=== PATIENT | male | born 1950 | race Caucasian/White ===

== ENCOUNTER 2019-05-01 13:22 | Outpatient (CLI) | payer MEDICARE ==
[2019-05-01] MEDS ORDERED: ACET-1600 PO (13:53)
[2019-05-01 14:31] LABS: MICROSCOPIC NOT IND
[2019-05-01 14:34] LABS: BASOPHILS # (AUTO) 0.09 x10^3/uL (0-0.1); BASOPHILS % (AUTO) 1 % (0-1); EOSINOPHILS # (AUTO) 0.07 x10^3/uL (0-0.4); EOSINOPHILS % (AUTO) 1 % (1-7); LYMPHOCYTES # (AUTO) 3.01 x10^3/uL (1-3.4); LYMPHOCYTES % (AUTO) 31 % (22-44); MD NO; MEAN CORPUSCULAR HGB CONC 32.8 g/dL (33.2-36.2); MEAN CORPUSCULAR VOLUME 91.3 fL (81-97); MONOCYTES # (AUTO) 0.58 x10^3/uL (0.2-0.8); MONOCYTES % (AUTO) 6 % (2-9); NEUTROPHILS # (AUTO) 5.88 x10^3/uL (1.8-6.8); NEUTROPHILS % (AUTO) 61 % (42-75); PLATELET COUNT 188 x10^3/uL (130-400); RED BLOOD COUNT 5.54 x10^6/uL (4.38-5.82); RED CELL DISTRIBUTION WIDTH 14.1 % (9.4-14.8)
[2019-05-01 14:37] LABS: CULTURE INDICATED? NO
[2019-05-01 14:42] LABS: ALANINE AMINOTRANSFERASE 30 U/L (12-78); ANION GAP 7 mmol/L (5-15); CALCIUM 8.8 mg/dL (8.5-10.1); CHLORIDE 105 mmol/L (98-107); CREATININE 1.08 mg/dL (0.7-1.3)
[2019-05-01 14:44] LABS: ALKALINE PHOSPHATASE 69 U/L (45-117); BILIRUBIN,TOTAL 0.7 mg/dL (0.2-1.0); INTERNATIONAL NORMALIZED RATIO 0.92 (0.93-1.1); PROTHROMBIN TIME 9.7 Seconds (9.6-11.5); TOTAL PROTEIN 7.3 g/dL (6.4-8.2)
== END 2019-05-01 23:59 | disposition home or self-care (01) ==
LOC: STAR 13:22
PROVIDERS: ATTEND Orthopaedic Surgery Orthopaedic Surgery of the Spine
DX: Z01.818 Encounter for other preprocedural examination (principal); M48.061 Spinal stenosis, lumbar region without neurogenic claudication; M54.16 Radiculopathy, lumbar region
CPT/HCPCS: 36415; 71046; 80053; 81003; 85025; 85610; 85730; 93005

== ENCOUNTER 2019-05-06 08:09 | Emergency (ER) | payer MEDICARE ==
[~2019-05-06] VITALS: Ht 177.8 cm; Wt 96.0 kg
[~2019-05-06 08:09] MED LIST: ACET-1600 PO
[2019-05-06 08:55] VITALS: BP 156/111
--- NOTE | 2019-05-06 08:56 | NUR ---
PT SENT FROM [facility], PT WITH ELEVATED BP 180S/110. PT WITH NO C/O PAIN AT THIS TIME, STATES "I FEEL FINE, I MAY JUST BE STRESSED, I NEED THIS SURGURY." PT TO BP, CONT PULSE OX
--- NOTE | 2019-05-06 10:22 | NUR ---
PT MEDICATED PER MD ORDER. Patient/Caregiver given discharge instructions and they have confirmed that they understand the instructions. Patient ambulatory with steady gait.
== END 2019-05-06 10:27 | disposition home or self-care (01) ==
LOC: ED 10:21
DX: I10 Essential (primary) hypertension (principal); M54.32 Sciatica, left side
CPT/HCPCS: 99283; J0690; J1100; J2370; J2405; J2704; J2710; J0171; J2001; J2250; J3010; J3370; J3490

== ENCOUNTER 2019-05-26 08:18 | Day surgery (SDC) | payer MEDICARE ==
[~2019-05-26] VITALS: Ht 180.3 cm; Wt 96.2 kg
[2019-05-26] MEDS ORDERED: LISI1TAB19 PO (08:46)
[2019-05-26] MEDS ORDERED: LACTATED RINGERS 1,000 ML IV SCH (08:48)
[2019-05-26] MEDS ORDERED: FENTANYL PF 250 MCG/5ML ONE (08:50)
[2019-05-26] MEDS ORDERED: MIDAZOLAM 1 MG/ML, 2ML ONE (08:50)
[2019-05-26] MEDS ORDERED: ACETAMINOPHEN 500 MG TABLET ONE (08:58)
[2019-05-26] MEDS ORDERED: GABAPENTIN 300 MG CAPSULE ONE (08:58)
[2019-05-26] MEDS ORDERED: LIDOCAINE-MPF 1%, 2ML INFIL ONE (09:00)
[2019-05-26] MEDS ORDERED: ACETAMINOPHEN 500 MG TABLET PO ONE (09:00)
[2019-05-26] MEDS ORDERED: PLEASE ENTER HEIGHT AND WEIGHT MC SCH (09:00)
[2019-05-26] MEDS ORDERED: GABAPENTIN 300 MG CAPSULE PO ONE (09:00)
[2019-05-26 09:02] VITALS: BP 167/116
== END 2019-05-26 10:11 | disposition home or self-care (01) ==
LOC: OUT 08:18
PROVIDERS: ATTEND Orthopaedic Surgery Orthopaedic Surgery of the Spine
DX: M54.16 Radiculopathy, lumbar region (principal); M48.061 Spinal stenosis, lumbar region without neurogenic claudication; Z53.8 Procedure and treatment not carried out for other reasons; I10 Essential (primary) hypertension; Z72.89 Other problems related to lifestyle; Z79.899 Other long term (current) drug therapy; Z88.6 Allergy status to analgesic agent; Z98.890 Other specified postprocedural states
CPT/HCPCS: 71045; J2250; J3010; J7120

== ENCOUNTER 2019-06-17 06:06 | Day surgery (SDC) | payer MEDICARE ==
[~2019-06-17] VITALS: Ht 180.3 cm; Wt 95.0 kg
[~2019-06-17 06:06] MED LIST changes: +LISI1TAB19 PO
[2019-06-17] MEDS ORDERED: MIDAZOLAM 1 MG/ML, 2ML ONE (06:47)
[2019-06-17] MEDS ORDERED: FENTANYL PF 250 MCG/5ML ONE (06:47)
[2019-06-17 06:54] VITALS: BP 136/94
[2019-06-17] MEDS ORDERED: ACETAMINOPHEN 500 MG TABLET PO ONE (07:00)
[2019-06-17] MEDS ORDERED: GABAPENTIN 300 MG CAPSULE PO ONE (07:00)
[2019-06-17] MEDS ORDERED: BUPIVACAINE/PF 0.25% ONE (07:02)
[2019-06-17] MEDS ORDERED: LIDOCAINE/PF 0.5% ,50ML ONE (07:02)
[2019-06-17] MEDS ORDERED: THROMBIN 5,000 UNIT VIAL TP ONE (07:03)
[2019-06-17] MEDS ORDERED: EPINEPHRINE 1 MG/ML, 1ML ONE (07:03)
[2019-06-17] MEDS ORDERED: VANCOMYCIN 1,000 MG ONE (07:03)
[2019-06-17] MEDS ORDERED: LACTATED RINGERS 1,000 ML IV SCH (07:15)
[2019-06-17] MEDS ORDERED: OXYcodone 5 MG/5 ML ORAL.SOL UDC PO PRN (07:30)
[2019-06-17] MEDS ORDERED: HYDROmorphone 2 MG/ML, 1ML IVPush PRN (07:30)
[2019-06-17] MEDS ORDERED: LABETALOL 5MG/ML, 20ML IV PRN (07:30)
[2019-06-17] MEDS ORDERED: DIAZEPAM 5 MG/ML, 2ML IVPush PRN (07:30)
[2019-06-17] MEDS ORDERED: MORPHINE SULFATE 4 MG/ML, 1ML IVPush PRN (07:30)
[2019-06-17] MEDS ORDERED: MEPERIDINE/PF 25MG/ML,1ML IVPush PRN (07:30)
[2019-06-17] MEDS ORDERED: hydrALAzine 20 MG/ML, 1ML IV PRN (07:30)
[2019-06-17] MEDS ORDERED: PROMETHAZINE 25 MG/ML, 1ML IV PRN (07:30)
[2019-06-17] MEDS ORDERED: HALOPERIDOL 5 MG/ML IV PRN (07:30)
[2019-06-17] MEDS ORDERED: PHENYLEPHRINE 10 MG/ML ONE (07:39)
[2019-06-17] MEDS ORDERED: ROCURONIUM 10MG/ML,5ML ONE (08:45)
[2019-06-17] MEDS ORDERED: NEOSTIGMINE 1 MG/ML, 10ML ONE (08:45)
[2019-06-17] MEDS ORDERED: CEFAZOLIN 1,000 MG ONE (08:45)
[2019-06-17] MEDS ORDERED: PROPOFOL 10 MG/ML, 20ML ONE (08:45)
[2019-06-17] MEDS ORDERED: GLYCOPYRROLATE 0.2MG/1ML, 5ML ONE (08:45)
[2019-06-17] MEDS ORDERED: DEXAMETHASONE 4 MG/ML, 1ML ONE (08:45)
[2019-06-17] MEDS ORDERED: ONDANSETRON 2MG/ML, 2ML ONE (08:45)
[2019-06-17] MEDS ORDERED: DIAZEPAM 5 MG/ML, 2ML ONE (09:36)
[2019-06-17] MEDS ORDERED: OXYcodone 5 MG/5 ML ORAL.SOL UDC ONE (09:36)
[2019-06-17] MEDS ORDERED: FENTANYL PF 100 MCG/2ML ONE (09:40)
[2019-06-17] MEDS: FENTANYL PF 100 MCG/2ML IV PRN ×4 (09:41→09:57)
== END 2019-06-17 11:30 | disposition home or self-care (01) ==
LOC: OUT 06:06
PROVIDERS: ATTEND Orthopaedic Surgery Orthopaedic Surgery of the Spine
DX: M48.07 Spinal stenosis, lumbosacral region (principal); M54.17 Radiculopathy, lumbosacral region; M02.30 Reiter's disease, unspecified site; I10 Essential (primary) hypertension; Z79.899 Other long term (current) drug therapy; Z88.1 Allergy status to other antibiotic agents
CPT/HCPCS: 63030; 72100; J0171; J0690; J1100; J2001; J2250; J2370; J2405; J2704; J2710; J3010; J3360; J3370; J3490; J7120